=== PATIENT | male | born 1980 | race Caucasian/White ===

== ENCOUNTER → 2021-08-19 04:31 | Outpatient (CLI) | payer BC, SELFPAY ==
[2021-08-19 16:45] LABS: SARS-CoV-2 RNA PCR Negative
== END ==
PROVIDERS: PCP Nurse Practitioner Adult Health; Visit Provider Nurse Practitioner Adult Health
DX: R09.89 Other specified symptoms and signs involving the circulatory and respiratory systems (principal); Z20.822 Contact with and (suspected) exposure to COVID-19
CPT/HCPCS: C9803; U0003; U0005

== ENCOUNTER → 2022-10-27 11:23 | Outpatient (CLI) | payer BC, SELFPAY ==
--- NOTE | ~2022-10-27 | CT_ITS ---
EXAMINATION: CT IAC/mastoids BI wo con DATE: 10/27/2022 11:43 INDICATION: Mixed conductive and sensorineural hearing loss. TECHNIQUE: Computed tomography (CT) of the temporal bones was performed without intravenous contrast. Automated exposure control and iterative reconstruction technique were employed. The dose-length pro duct was 275.54 mGy-cm. COMPARISON: None FINDINGS: RIGHT TEMPORAL BONE: The internal auditory canal, cochlea, vestibule, semicircular canals, carotid canal, and facial nerve course are normal. Vestibular aqueduct is enlarged. Right jugular bulb is high-riding. There is a pr osthetic stapes. Prussak space, scutum, tympanic membrane, the mastoid air cells, and external artery canal are normal. LEFT TEMPORAL BONE: The internal auditory canal, cochlea, vestibule, and semicircular canals are normal. Vestibular aqued uct is enlarged. Carotid canal, jugular bulb, and facial nerve course are normal. There is a prosthet ic stapes. Prussak space, scutum, tympanic membrane, external auditory canal, and the mastoid air franky ls are normal. IMPRESSION: 1. Enlarged vestibular aqueducts bilaterally, consistent with vestibular aqueduct syndrome. 2. Prosthetic stapes bilaterally. 3. High riding right jugular bulb. Reviewed, dictated and finalized at location E. IMPRESSION: 1. Enlarged vestibular aqueducts bilaterally, consistent with vestibular aquedu ct syndrome. 2. Prosthetic stapes bilaterally. 3. High riding right jugular bulb.
== END ==
PROVIDERS: PCP Otolaryngology; Visit Provider Otolaryngology
DX: H90.6 Mixed conductive and sensorineural hearing loss, bilateral (principal); R93.0 Abnormal findings on diagnostic imaging of skull and head, not elsewhere classified
CPT/HCPCS: 70480